=== PATIENT | female | born 1935 | race Caucasian/White ===

== ENCOUNTER 2016-09-30 16:24 | Observation (INO) | payer OTHER ==
[~2016-09-30] VITALS: Ht 162.6 cm; Wt 88.1 kg
[~2016-09-30 16:24] MED LIST: AMLODIPINE-BEN1 EAC4 PO; ANTIVERT25 MG PO; ASPIRIN BUFFER325 MG PO; CALCIUM PO; CATAPRES0.1 MG PO; DIOVAN HCT 31 TABLE1 PO; DIOVAN HCT 3201 EAC1 PO; DOXYCYCLINE HYC20 MG PO; FEROSUL325 MG PO; GLUCOPHAGE1000 M1 PO; HUMALOG100 UNIT/1 SC; IRON325 M1 PO; LANTUS 3 M100 UNITS/ SC; LANTUS 3 M100 UNITS1 SC; LEVOTHROID75 MCG PO; LOPRESSOR50 MG PO; LUMIGAN 0.50 DROP/2. BOTH EYES; MULTIVITAMIN W1 EAC3 PO; NOVOLOG MI100 UNIT/2 SQ; NOVOLOG PE100 UNITS/ SC; OMEPRAZOLE40 M1 PO; PROTONIX40 MG PO; SYNTHROID75 MCG PO; VITAMIN D3 PO; VITAMIN D32000 UNI1 PO; ZINC50 M1 PO
[2016-09-30 17:06] LABS: MCH 30.4 PG (29.0-34.0); MCHC 32.9 G/DL (30.0-36.0); MCV 92.5 FL (83-99); PLATELET COUNT 223 K/uL (156-360); RBC DIS.WIDTH-CV 12.6 % (11.8-14.6); RBC DIS.WIDTH-SD 42.8 % (39-53); RED BLOOD COUNT 4.11 M/uL (3.80-5.20); WHITE BLOOD COUNT 6.6 K/uL (4.1-10.2)
[2016-09-30 17:14] LABS: CHLORIDE 101 mEq/L (99-109); POTASSIUM 4.4 mEq/L (3.7-5.4); SODIUM 135 mEq/L (136-147)
[2016-09-30 17:16] LABS: GLUCOSE 297 mg/dL (70-99)
[2016-09-30 17:17] LABS: ANION GAP 14 MEQ/L (2-14)
[2016-09-30 17:20] LABS: GFR ESTIMATE (CALCULATED) 31 mL/min/
[2016-09-30 17:21] LABS: UREA NITROGEN (BUN) 38 mg/dL (9-23)
[2016-09-30 17:27] LABS: TROP-I INTERPRETATION NEGATIVE; TROPONIN-I < 0.01 ng/mL (0.0-0.30)
[2016-09-30] MEDS ORDERED: NORVASC10 MG PO (18:22)
[2016-09-30] MEDS ORDERED: LITE COAT ASPI325 M1 PO (18:23)
[2016-09-30 21:43] VITALS: BP 131/62
[2016-09-30 22:52] LABS: POINT-OF-CARE METER ID UU13113831
[2016-09-30 23:31] LABS: TROP-I INTERPRETATION NEGATIVE; TROPONIN-I < 0.01 ng/mL (0.0-0.30)
[2016-10-01 05:34] VITALS: BP 152/89
[2016-10-01 07:02] LABS: TROP-I INTERPRETATION NEGATIVE; TROPONIN-I 0.01 ng/mL (0.0-0.30)
[2016-10-01 07:34] LABS: HDL CHOLESTEROL 45 MG/DL (Desirable>=50); LDL CHOLESTEROL 209 mg/dL (Desirable<100); NON-HDL CHOLESTEROL 258 mg/dL (Desirable<160); TOTAL CHOLESTEROL 303 mg/dL (Desirable<200); TRIGLYCERIDES 247 MG/DL (Normal: <150)
[2016-10-01 07:37] VITALS: BP 169/79
[2016-10-01 08:26] LABS: POINT-OF-CARE METER ID UU13113831
[2016-10-01 12:15] VITALS: BP 155/74
[2016-10-01 13:17] LABS: POINT-OF-CARE METER ID UU13113831
[2016-10-01] MEDS ORDERED: CLONIDINE HCL0.2 MG PO (13:56)
== END 2016-10-01 14:19 | disposition home or self-care (01) ==
LOC: EME 16:24 → EDOF 20:09 → 5WEST 20:09 → EDOF 20:09 → 5WEST 21:43
PROVIDERS: Hospitalist; Internal Medicine; Physician Assistant Medical
DX: R07.89 Other chest pain (principal); I16.0 Hypertensive urgency; I12.9 Hypertensive chronic kidney disease with stage 1 through stage 4 chronic kidney disease, or unspecified chronic kidney disease; N18.3 Chronic kidney disease, stage 3 (moderate); E87.0 Hyperosmolality and hypernatremia; I08.0 Rheumatic disorders of both mitral and aortic valves; R94.31 Abnormal electrocardiogram [ECG] [EKG]; E11.9 Type 2 diabetes mellitus without complications; E78.5 Hyperlipidemia, unspecified; K21.9 Gastro-esophageal reflux disease without esophagitis; G47.33 Obstructive sleep apnea (adult) (pediatric); F41.9 Anxiety disorder, unspecified; E66.9 Obesity, unspecified; Z79.4 Long term (current) use of insulin; E03.9 Hypothyroidism, unspecified
CPT/HCPCS: 71020; 80048; 80061; 82948; 84484; 85027; 93005; 94660; 99281; 99285; G0378; J1650; J1815

== ENCOUNTER 2017-05-06 05:32 | Emergency (ER) | payer OTHER ==
[~2017-05-06] VITALS: Ht 167.6 cm; Wt 89.5 kg
[~2017-05-06 05:32] MED LIST changes: +CLONIDINE HCL0.2 MG PO; +LITE COAT ASPI325 M1 PO; +NORVASC10 MG PO
[2017-05-06 05:36] VITALS: BP 167/79
[2017-05-06] MEDS ORDERED: VIBRAMYCIN100 MG PO (08:03)
== END 2017-05-06 08:16 | disposition home or self-care (01) ==
LOC: EME 05:32
PROC: 0H9GXZZ Drainage of Left Hand Skin, External Approach (ICD-10-PCS; principal; 2017-05-06)
DX: S60.222A Contusion of left hand, initial encounter (principal); L08.9 Local infection of the skin and subcutaneous tissue, unspecified; W01.0XXD Fall on same level from slipping, tripping and stumbling without subsequent striking against object, subsequent encounter; E11.9 Type 2 diabetes mellitus without complications; Z79.4 Long term (current) use of insulin; Z85.828 Personal history of other malignant neoplasm of skin
CPT/HCPCS: 73130; 99281; 99284

== ENCOUNTER 2017-06-12 09:25 | Observation (INO) | payer OTHER ==
[~2017-06-12] VITALS: Ht 167.6 cm; Wt 90.4 kg
[~2017-06-12 09:25] MED LIST changes: +LUMIGAN 0.50 DROP/22 BOTH EYES; +VIBRAMYCIN100 MG PO
[2017-06-12 09:54] LABS: BASOPHIL (%) 0.6 % (0-1); EOSINOPHIL COUNT 0.1 K/uL (0-0.3); HEMATOCRIT 36.5 % (36.0-46.0); HEMOGLOBIN 12.4 G/DL (11.9-15.5); IMMATURE GRANULOCYTE (%) 0.3 % (0.0-0.7); LYMPHOCYTE (%) 12.9 % (15-42); LYMPHOCYTE COUNT 0.8 K/uL (1.0-2.8); MCH 31.6 PG (29.0-34.0); MCV 93.1 FL (83-99); MONOCYTE (%) 9.2 % (3-12); MONOCYTE COUNT 0.6 K/uL (0-0.8); NEUTROPHIL COUNT 4.7 K/uL (1.8-6.4); PLATELET COUNT 190 K/uL (156-360); RBC DIS.WIDTH-SD 44.3 % (39-53); RED BLOOD COUNT 3.92 M/uL (3.80-5.20); WHITE BLOOD COUNT 6.2 K/uL (4.1-10.2)
[2017-06-12 10:03] LABS: CHLORIDE 101 mEq/L (99-109); POTASSIUM 4.3 mEq/L (3.7-5.4); SODIUM 137 mEq/L (136-147)
[2017-06-12 10:04] LABS: GLUCOSE 262 mg/dL (70-99)
[2017-06-12 10:08] LABS: CREATININE 1.6 mg/dL (0.6-1.3); GFR ESTIMATE (CALCULATED) 33 mL/min/
[2017-06-12 10:09] LABS: UREA NITROGEN (BUN) 29 mg/dL (9-23)
[2017-06-12 10:15] LABS: TROP-I INTERPRETATION NEGATIVE; TROPONIN-I < 0.01 ng/mL (0.0-0.30)
[2017-06-12] MEDS ORDERED: CLONIDINE HCL0.1 MG PO ×2 (12:17→12:18)
[2017-06-12] MEDS ORDERED: PANTOPRAZOLE SO40 MG PO (12:20)
[2017-06-12 12:47] LABS: HDL CHOLESTEROL 42 MG/DL (Desirable>=50); LDL CHOLESTEROL 204 mg/dL (Desirable<100); NON-HDL CHOLESTEROL 273 mg/dL (Desirable<160); TOTAL CHOLESTEROL 315 mg/dL (Desirable<200); TRIGLYCERIDES 343 MG/DL (Normal: <150)
[2017-06-12 13:24] VITALS: BP 160/73
[2017-06-12 13:35] LABS: HEMOGLOBIN A1c (GLYCOHEMOGLOB) 7.8 % (Below 5.7)
[2017-06-12 17:22] LABS: TROP-I INTERPRETATION NEGATIVE; TROPONIN-I 0.02 ng/mL (0.0-0.30)
[2017-06-12 19:18] VITALS: BP 112/59
[2017-06-12 22:06] LABS: TROP-I INTERPRETATION NEGATIVE; TROPONIN-I 0.02 ng/mL (0.0-0.30)
[2017-06-13 00:25] VITALS: BP 102/52
[2017-06-13 03:39] VITALS: BP 99/50
[2017-06-13 07:41] VITALS: BP 169/77
[2017-06-13 11:57] VITALS: BP 150/73
[2017-06-13] MEDS ORDERED: PRAVACHOL40 MG PO (13:56)
[2017-06-13] MEDS ORDERED: TRICOR145 MG PO (13:57)
== END 2017-06-13 15:25 | disposition home or self-care (01) ==
LOC: EME 09:25 → ENRESERV 11:25 → 5WEST 11:27 → EDOF 11:27 → ENRESERV 11:42 → 5WEST 13:09 → ENPENDDIS 06-13 → 5WEST 06-13 15:25
PROVIDERS: Emergency Medicine; Internal Medicine
DX: R07.9 Chest pain, unspecified (principal); R68.84 Jaw pain; R20.0 Anesthesia of skin; I65.23 Occlusion and stenosis of bilateral carotid arteries; R53.1 Weakness; R94.31 Abnormal electrocardiogram [ECG] [EKG]; N28.9 Disorder of kidney and ureter, unspecified; I10 Essential (primary) hypertension; E78.5 Hyperlipidemia, unspecified; I35.0 Nonrheumatic aortic (valve) stenosis; E11.40 Type 2 diabetes mellitus with diabetic neuropathy, unspecified; G47.33 Obstructive sleep apnea (adult) (pediatric); E03.9 Hypothyroidism, unspecified; Z79.82 Long term (current) use of aspirin; Z79.4 Long term (current) use of insulin; Z90.710 Acquired absence of both cervix and uterus; Z83.3 Family history of diabetes mellitus; Z96.643 Presence of artificial hip joint, bilateral
CPT/HCPCS: 70450; 70551; 71045; 80048; 80061; 82948; 83036; 84484; 85025; 93005; 93880; 99281; 99284; G0378; J1815

== ENCOUNTER 2017-11-30 15:08 | Inpatient (IN) | payer OTHER ==
[~2017-11-30] VITALS: Ht 170.2 cm; Wt 93.0 kg
[~2017-11-30 15:08] MED LIST changes: +CLONIDINE HCL0.1 MG PO; +NOVOLOG MI100 UNIT/2 SC; +PANTOPRAZOLE SO40 MG PO; +PRAVACHOL40 MG PO; +TRICOR145 MG PO
[2017-11-30 16:06] LABS: HEMATOCRIT 33.5 % (36.0-46.0); HEMOGLOBIN 11.5 G/DL (11.9-15.5); MCH 31.7 PG (29.0-34.0); MCHC 34.3 G/DL (30.0-36.0); MCV 92.3 FL (83-99); PLATELET COUNT 203 K/uL (156-360); RBC DIS.WIDTH-CV 13.2 % (11.8-14.6); RBC DIS.WIDTH-SD 44.8 % (39-53); RED BLOOD COUNT 3.63 M/uL (3.80-5.20); WHITE BLOOD COUNT 9.4 K/uL (4.1-10.2)
[2017-11-30 16:16] LABS: CHLORIDE 104 mEq/L (99-109); POTASSIUM 4.5 mEq/L (3.7-5.4); SODIUM 137 mEq/L (136-147)
[2017-11-30 16:17] LABS: GLUCOSE 258 mg/dL (70-99)
[2017-11-30 16:21] LABS: CREATININE 1.8 mg/dL (0.6-1.3); GFR ESTIMATE (CALCULATED) 29 mL/min/
[2017-11-30 16:22] LABS: UREA NITROGEN (BUN) 35 mg/dL (9-23)
[2017-11-30 16:26] LABS: TROP-I INTERPRETATION POSITIVE
[2017-11-30 16:30] LABS: TROPONIN-I 2.47 ng/mL (0.0-0.30)
[2017-11-30 17:05] LABS: INTER. NORMALIZED RATIO 1.1
[2017-11-30 17:07] LABS: PTT 31.3 SEC (25-37)
[2017-11-30] MEDS ORDERED: ZINC50 M1 PO (17:54)
[2017-11-30] MEDS ORDERED: ALLOPURINOL100 MG PO (17:55)
[2017-11-30 19:55] VITALS: BP 136/76
[2017-11-30 20:33] LABS: TROP-I INTERPRETATION POSITIVE
[2017-11-30 20:36] LABS: TROPONIN-I 5.21 ng/mL (0.0-0.30)
[2017-11-30 23:15] LABS: INTER. NORMALIZED RATIO 1.3
[2017-11-30 23:17] VITALS: BP 103/65
[2017-12-01 00:09] LABS: PTT 160.3 SEC (25-37)
[2017-12-01 06:54] LABS: TROP-I INTERPRETATION POSITIVE; TROPONIN-I 16.23 ng/mL (0.0-0.30)
[2017-12-01 07:02] VITALS: BP 127/70
[2017-12-01 10:32] LABS: HEMATOCRIT 29.6 % (36.0-46.0); HEMOGLOBIN 10.1 G/DL (11.9-15.5); MCH 31.9 PG (29.0-34.0); MCHC 34.1 G/DL (30.0-36.0); MCV 93.4 FL (83-99); NRBC (%) 0.2 /100 WBC (0-0); PLATELET COUNT 196 K/uL (156-360); RBC DIS.WIDTH-CV 13.5 % (11.8-14.6); RBC DIS.WIDTH-SD 46.5 % (39-53); RED BLOOD COUNT 3.17 M/uL (3.80-5.20); WHITE BLOOD COUNT 9.4 K/uL (4.1-10.2)
[2017-12-01 11:21] LABS: CHLORIDE 98 MEQ/L (99-109); CREATININE 1.6 MG/DL (0.6-1.3); GFR ESTIMATE (CALCULATED) 33 mL/min/; GLUCOSE 314 mg/dL (70-99); MAGNESIUM 1.7 mg/dl (1.3-2.7); POTASSIUM 5.1 MEQ/L (3.7-5.4); SODIUM 130 MEQ/L (136-147); UREA NITROGEN (BUN) 34 mg/dL (9-23)
[2017-12-01 11:29] VITALS: BP 130/70
[2017-12-01 13:16] LABS: TROP-I INTERPRETATION POSITIVE; TROPONIN-I 13.89 ng/mL (0.0-0.30)
[2017-12-01 19:30] VITALS: BP 129/64
[2017-12-01 21:51] VITALS: BP 136/78
[2017-12-02] VITALS (7 sets, daily range): BP systolic 102–159; BP diastolic 57–89
[2017-12-02 01:43] LABS: CHLORIDE 99 mEq/L (99-109); POTASSIUM 5.1 mEq/L (3.7-5.4); SODIUM 131 mEq/L (136-147)
[2017-12-02 01:48] LABS: GFR ESTIMATE (CALCULATED) 25 mL/min/
[2017-12-02 01:49] LABS: UREA NITROGEN (BUN) 41 mg/dL (9-23)
[2017-12-02 01:51] LABS: GLUCOSE 562 mg/dL (70-99)
[2017-12-02 06:47] LABS: HEMOGLOBIN 10.2 G/DL (11.9-15.5); MCH 31.9 PG (29.0-34.0); MCV 93.8 FL (83-99); PLATELET COUNT 205 K/uL (156-360); RBC DIS.WIDTH-CV 13.5 % (11.8-14.6); RBC DIS.WIDTH-SD 46.2 % (39-53)
[2017-12-02 07:19] LABS: CHLORIDE 99 MEQ/L (99-109); CREATININE 1.6 MG/DL (0.6-1.3); GFR ESTIMATE (CALCULATED) 33 mL/min/; MAGNESIUM 1.9 mg/dl (1.3-2.7); POTASSIUM 4.4 MEQ/L (3.7-5.4); SODIUM 133 MEQ/L (136-147); UREA NITROGEN (BUN) 42 mg/dL (9-23)
[2017-12-02 07:21] LABS: GLUCOSE 408 mg/dL (70-99)
[2017-12-02 20:03] LABS: BASOPHIL (%) 0.2 % (0-1); BASOPHIL COUNT 0.1 K/uL (0-0.1); EOSINOPHIL (%) 0 % (0-5); HEMATOCRIT 31.1 % (36.0-46.0); IMMATURE GRANULOCYTE (%) 1.3 % (0.0-0.7); LYMPHOCYTE (%) 4.8 % (15-42); LYMPHOCYTE COUNT 1.3 K/uL (1.0-2.8); MCH 32.3 PG (29.0-34.0); MCHC 35.4 G/DL (30.0-36.0); MCV 91.2 FL (83-99); MONOCYTE (%) 10.3 % (3-12); MONOCYTE COUNT 2.9 K/uL (0-0.8); NEUTROPHIL (%) 83.4 % (45-76); NEUTROPHIL COUNT 23.3 K/uL (1.8-6.4); RBC DIS.WIDTH-CV 13.5 % (11.8-14.6); RBC DIS.WIDTH-SD 45.2 % (39-53); RED BLOOD COUNT 3.41 M/uL (3.80-5.20); WHITE BLOOD COUNT 27.9 K/uL (4.1-10.2)
[2017-12-02 20:06] LABS: PLATELET COUNT 280 K/uL (156-360)
[2017-12-02 22:08] LABS: APPEARANCE SL.HAZY ((CLEAR)); BILIRUBIN NEGATIVE; BLOOD SMALL; COLOR YELLOW ((YELLOW)); GLUCOSE (STRIP) >=500; KETONES NEGATIVE; LEUKOCYTES NEGATIVE; NITRITE NEGATIVE; PROTEIN (STRIP) NEGATIVE; SPECIFIC GRAVITY 1.018 (1.000-1.030); UROBILINOGEN 0.2 MG/DL (0.2-1.0)
[2017-12-02 22:13] LABS: BACTERIA RARE /HPF; EPITHELIAL CELLS 2+ /HPF; MUCUS TRACE /LPF; RED BLOOD CELLS 0-5 /HPF (0-5); UCUL ADDED? NO; WHITE BLOOD CELLS 0-5 /HPF (0-5)
[2017-12-03 03:55] VITALS: BP 139/82
[2017-12-03 07:11] LABS: CHLORIDE 102 MEQ/L (99-109); CREATININE 1.7 MG/DL (0.6-1.3); GFR ESTIMATE (CALCULATED) 31 mL/min/; GLUCOSE 208 mg/dL (70-99); POTASSIUM 4.5 MEQ/L (3.7-5.4); SODIUM 136 MEQ/L (136-147); UREA NITROGEN (BUN) 53 mg/dL (9-23)
[2017-12-03 07:27] LABS: BASOPHIL (%) 0.1 % (0-1); EOSINOPHIL (%) 0 % (0-5); HEMATOCRIT 33.4 % (36.0-46.0); HEMOGLOBIN 11.4 G/DL (11.9-15.5); IMMATURE GRANULOCYTE (%) 1.7 % (0.0-0.7); LYMPHOCYTE (%) 4.8 % (15-42); LYMPHOCYTE COUNT 1.1 K/uL (1.0-2.8); MCH 31.7 PG (29.0-34.0); MCHC 34.1 G/DL (30.0-36.0); MCV 92.8 FL (83-99); MONOCYTE (%) 10.5 % (3-12); MONOCYTE COUNT 2.4 K/uL (0-0.8); NEUTROPHIL (%) 82.9 % (45-76); NEUTROPHIL COUNT 18.8 K/uL (1.8-6.4); PLATELET COUNT 253 K/uL (156-360); RBC DIS.WIDTH-CV 13.9 % (11.8-14.6); RBC DIS.WIDTH-SD 47.1 % (39-53); WHITE BLOOD COUNT 22.7 K/uL (4.1-10.2)
[2017-12-03 07:48] VITALS: BP 139/62
[2017-12-03 11:33] VITALS: BP 127/82
[2017-12-03 17:19] VITALS: BP 132/88
[2017-12-03 20:04] VITALS: BP 120/82
[2017-12-04 00:08] VITALS: BP 119/69
[2017-12-04 04:44] VITALS: BP 136/76
[2017-12-04 05:56] LABS: BASOPHIL (%) 0.1 % (0-1); EOSINOPHIL (%) 0 % (0-5); HEMATOCRIT 29.4 % (36.0-46.0); HEMOGLOBIN 10.1 G/DL (11.9-15.5); LYMPHOCYTE (%) 7.3 % (15-42); LYMPHOCYTE COUNT 1.1 K/uL (1.0-2.8); MCH 31.9 PG (29.0-34.0); MCHC 34.4 G/DL (30.0-36.0); MCV 92.7 FL (83-99); MONOCYTE (%) 10.9 % (3-12); MONOCYTE COUNT 1.7 K/uL (0-0.8); NEUTROPHIL (%) 80.7 % (45-76); NEUTROPHIL COUNT 12.4 K/uL (1.8-6.4); PLATELET COUNT 244 K/uL (156-360); RBC DIS.WIDTH-SD 47.6 % (39-53); RED BLOOD COUNT 3.17 M/uL (3.80-5.20); WHITE BLOOD COUNT 15.4 K/uL (4.1-10.2)
[2017-12-04 06:10] LABS: ALBUMIN 3.4 G/DL (3.2-4.8); ALKALINE PHOSPHATASE 76 IU/L (3-129); ALT (GPT) 28 IU/L (3-49); AST (GOT) 35 IU/L (2-34); CHLORIDE 100 MEQ/L (99-109); GFR ESTIMATE (CALCULATED) 23 mL/min/; GLUCOSE 167 mg/dL (70-99); POTASSIUM 3.7 MEQ/L (3.7-5.4); SODIUM 138 MEQ/L (136-147); TOTAL BILIRUBIN 1.7 MG/DL (0.0-1.0); TOTAL PROTEIN 6.5 G/DL (6.4-8.3); UREA NITROGEN (BUN) 66 mg/dL (9-23)
[2017-12-04 06:14] LABS: CREATININE 2.2 MG/DL (0.6-1.3)
[2017-12-04 08:41] VITALS: BP 129/75
[2017-12-04 09:59] LABS: HEMOGLOBIN A1c (GLYCOHEMOGLOB) 8.7 % (Below 5.7)
[2017-12-04 12:40] VITALS: BP 133/72
[2017-12-04 16:36] VITALS: BP 114/58
[2017-12-04 19:25] VITALS: BP 135/69
[2017-12-05] VITALS (7 sets, daily range): BP systolic 116–139; BP diastolic 64–87
[2017-12-05 05:59] LABS: BASOPHIL (%) 0.1 % (0-1); EOSINOPHIL (%) 1.9 % (0-5); EOSINOPHIL COUNT 0.2 K/uL (0-0.3); HEMATOCRIT 28.7 % (36.0-46.0); HEMOGLOBIN 9.5 G/DL (11.9-15.5); IMMATURE GRANULOCYTE (%) 0.8 % (0.0-0.7); LYMPHOCYTE (%) 10.1 % (15-42); LYMPHOCYTE COUNT 1.1 K/uL (1.0-2.8); MCH 31.3 PG (29.0-34.0); MCHC 33.1 G/DL (30.0-36.0); MCV 94.4 FL (83-99); MONOCYTE COUNT 1.3 K/uL (0-0.8); NEUTROPHIL (%) 75.1 % (45-76); NEUTROPHIL COUNT 8.2 K/uL (1.8-6.4); PLATELET COUNT 213 K/uL (156-360); RBC DIS.WIDTH-CV 14.1 % (11.8-14.6); RBC DIS.WIDTH-SD 48.3 % (39-53); RED BLOOD COUNT 3.04 M/uL (3.80-5.20)
[2017-12-05 06:53] LABS: ALBUMIN 3.2 G/DL (3.2-4.8); ALKALINE PHOSPHATASE 69 IU/L (3-129); ALT (GPT) 27 IU/L (3-49); AST (GOT) 28 IU/L (2-34); CHLORIDE 104 MEQ/L (99-109); CREATININE 2.1 MG/DL (0.6-1.3); GFR ESTIMATE (CALCULATED) 24 mL/min/; POTASSIUM 3.5 MEQ/L (3.7-5.4); SODIUM 138 MEQ/L (136-147); TOTAL PROTEIN 6.7 G/DL (6.4-8.3); UREA NITROGEN (BUN) 63 mg/dL (9-23)
[2017-12-05 07:02] LABS: GLUCOSE 120 mg/dL (70-99); TOTAL BILIRUBIN 1.3 MG/DL (0.0-1.0)
[2017-12-06 03:15] VITALS: BP 154/82
[2017-12-06 05:35] LABS: BASOPHIL (%) 0.1 % (0-1); EOSINOPHIL (%) 4.5 % (0-5); EOSINOPHIL COUNT 0.5 K/uL (0-0.3); HEMOGLOBIN 9.3 G/DL (11.9-15.5); IMMATURE GRANULOCYTE (%) 1.3 % (0.0-0.7); LYMPHOCYTE (%) 9.2 % (15-42); MCH 31.5 PG (29.0-34.0); MCHC 33.2 G/DL (30.0-36.0); MCV 94.9 FL (83-99); MONOCYTE (%) 12.7 % (3-12); MONOCYTE COUNT 1.4 K/uL (0-0.8); NEUTROPHIL (%) 72.2 % (45-76); NEUTROPHIL COUNT 7.8 K/uL (1.8-6.4); PLATELET COUNT 231 K/uL (156-360); RBC DIS.WIDTH-SD 48.5 % (39-53); RED BLOOD COUNT 2.95 M/uL (3.80-5.20); WHITE BLOOD COUNT 10.9 K/uL (4.1-10.2)
[2017-12-06 05:55] LABS: ALBUMIN 3.3 G/DL (3.2-4.8); CHLORIDE 106 MEQ/L (99-109); CREATININE 1.7 MG/DL (0.6-1.3); GFR ESTIMATE (CALCULATED) 31 mL/min/; GLUCOSE 157 mg/dL (70-99); PHOSPHORUS 2.8 mg/dL (2.5-4.9); POTASSIUM 4.1 MEQ/L (3.7-5.4); SODIUM 138 MEQ/L (136-147); UREA NITROGEN (BUN) 51 mg/dL (9-23)
[2017-12-06 07:09] VITALS: BP 136/74
[2017-12-06] MEDS ORDERED: ASPIR-LOW81 MG PO (11:51)
[2017-12-06] MEDS ORDERED: NOVOLOG 10100 UNITS/ SC (11:53)
[2017-12-06] MEDS ORDERED: NITROSTAT0.4 MG SL (11:53)
[2017-12-06] MEDS ORDERED: LOSARTAN POTAS100 MG PO (11:53)
[2017-12-06] MEDS ORDERED: ELIQUIS2.5 MG PO (11:53)
[2017-12-06] MEDS ORDERED: LEVAQUIN500 MG PO (11:53)
[2017-12-06] MEDS ORDERED: CLOPIDOGREL75 MG PO (11:53)
[2017-12-06] MEDS ORDERED: METOPROLOL SUC100 MG PO (11:53)
[2017-12-06] MEDS ORDERED: PRAVASTATIN SOD40 MG PO (11:53)
[2017-12-06] MEDS ORDERED: VENTOLIN HFA18 GM IH (11:58)
== END 2017-12-06 14:56 | disposition home health service (06) | DRG 246 ==
LOC: EME 15:08 → EDOF 18:25 → 4EAST 18:25 → ENRESERV 18:26 → 4EAST 19:38
PROVIDERS: Emergency Medicine; Hospitalist; Internal Medicine; Internal Medicine Cardiovascular Disease
DX: I21.4 Non-ST elevation (NSTEMI) myocardial infarction (principal); J15.9 Unspecified bacterial pneumonia; I50.21 Acute systolic (congestive) heart failure; I13.0 Hypertensive heart and chronic kidney disease with heart failure and stage 1 through stage 4 chronic kidney disease, or unspecified chronic kidney disease; N18.3 Chronic kidney disease, stage 3 (moderate); I44.0 Atrioventricular block, first degree; I25.5 Ischemic cardiomyopathy; R09.02 Hypoxemia; E11.22 Type 2 diabetes mellitus with diabetic chronic kidney disease; G47.33 Obstructive sleep apnea (adult) (pediatric); I27.20 Pulmonary hypertension, unspecified; Z79.4 Long term (current) use of insulin; Z91.14 Patient's other noncompliance with medication regimen; E78.5 Hyperlipidemia, unspecified; E03.9 Hypothyroidism, unspecified; D64.9 Anemia, unspecified; I48.0 Paroxysmal atrial fibrillation; F41.9 Anxiety disorder, unspecified; I08.3 Combined rheumatic disorders of mitral, aortic and tricuspid valves; I25.10 Atherosclerotic heart disease of native coronary artery without angina pectoris; K21.9 Gastro-esophageal reflux disease without esophagitis; E66.9 Obesity, unspecified; Z68.32 Body mass index [BMI] 32.0-32.9, adult
CPT/HCPCS: 71045; 71046; 71250; 80048; 80048 91; 80053; 80069; 81003; 82010; 82948; 83036; 83735; 83880; 84145 90; 84484; 85025; 85027; 85347; 85610; 85730; 87070; 87205; 87641; 93005; 93306; 94640; 94760; 94799; 99281; 99285; C1725; C1769; C1874; C1887; J0153; J1265; J1644; J1815; J1940; J2250; J2270; J2543; J2920; J2930; J3010; J3246; J3370; J7030; J7040; J7050